=== PATIENT | male | born 1985 | race Hispanic/Latino ===

== ENCOUNTER 2019-09-27 10:33 | Emergency (ER) | payer OTHER ==
[2019-09-27 10:56] LABS: Absolute Lymphocytes (CBC) 1.7 K/uL (0.7-4.9); Basophils % 0.6 % (0-1.3); Hematocrit 39.5 % (39.6-49.0); Lymphocytes % 23.2 % (15.3-44.8); MPV 7.6 fL (7.6-11.3); RBC Red Blood Cell Count 4.38 M/uL (4.33-5.43)
[2019-09-27 11:17] LABS: BUN Blood Urea Nitrogen 19 mg/dL (7-18); Bicarbonate 28 mmol/L (21-32); Glucose Level 112 mg/dL (74-106); Potassium 3.8 mmol/L (3.5-5.1); Sodium Level 143 mmol/L (136-145)
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
[2019-09-27] MEDS ORDERED: MORPHINE 4 MG/ML SYR ONE (11:38)
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
--- NOTE | 2019-09-27 12:00 | RAD REPORT ---
EXAM DESCRIPTION: Zoe Single View09/27/2019 11:25 am CLINICAL HISTORY: Chest pain COMPARISON: none FINDINGS: The lungs appear clear of acute infiltrate. The heart is borderline enlarged IMPRESSION: No acute abnormalities displayed
[2019-09-27 14:57] VITALS: TEMP 98.9
[2019-09-27 15:02] VITALS: BP 119/71; O2SAT 97
== END 2019-09-27 14:52 | disposition short-term general hospital (02) ==
LOC: ER 10:33
DX: S27.0XXA Traumatic pneumothorax, initial encounter (principal); S22.42XA Multiple fractures of ribs, left side, initial encounter for closed fracture; W22.8XXA Striking against or struck by other objects, initial encounter; Y93.89 Activity, other specified; Y92.149 Unspecified place in prison as the place of occurrence of the external cause; Z88.0 Allergy status to penicillin
CPT/HCPCS: 85025; 80048; 36415; 82565; 70450; 72125; 71260; 74177; 71045; Q9967; 96374; 96375; 99285; G0390